=== PATIENT | male | born 1990 | race Caucasian/White ===

== ENCOUNTER → 2016-09-11 | Outpatient (CLI) | payer OTHER ==
[~2016-09-11] MED LIST: GADOBUTROL 10 MMOL/10 ML VIAL IV ONE
--- NOTE | 2016-09-11 17:03 | RAD ---
MR CERVICAL SPINE HISTORY:DDD, S/P EPIDURAL INJECTION, C/O LEG WEAKNESS, Neck pain into rt shoulder - Chronic. Legs shaky after epidural injection. Please call report to Dr. Maldonado [phone]: DDD, S/P EPIDURAL INJECTION, C/O LEG WEAKNESS / Spl. Instructions: Neck pain into rt shoulder - Chronic. Legs shaky after epidural injection / History: Technique: Sagittal T2, sagittal STIR, sagittal T1, and axial gradient echo imaging was obtained of the cervical spine. Postcontrast T1 weighted images were obtained after intravenous administration of gadolinium based contrast. FINDINGS: Alignment and curvature are within normal limits. Vertebral body heights are maintained. Overall bone marrow signal is within normal limits. The cord demonstrates no abnormal signal or abnormal enhancement. At C2-3 there is no spinal stenosis. At C3-4 there is no spinal stenosis. At C4-5 there is no spinal stenosis. At C5-6 there is bilateral uncovertebral hypertrophy worse on the left causing moderate left foraminal stenosis. Correlate for left C6 radiculopathy symptoms. At C6-C7 there is no spinal stenosis. At C7-T1 there is no spinal stenosis. Impression: - No acute abnormality of the cervical spine. No evidence for epidural fluid collection. No cord signal abnormality or high-grade stenosis. There is however, moderate left foraminal stenosis at C5-C6 from uncovertebral hypertrophy. Correlate for C6 radiculopathy symptoms. Electronically signed by: Hermelindo Mejia (Sep 11, 2016 17:02:03)
== END | disposition home or self-care (01) ==
LOC: MRI 13:38
PROVIDERS: ATTEND Physical Medicine & Rehabilitation
DX: M48.02 Spinal stenosis, cervical region (principal); R53.1 Weakness
CPT/HCPCS: 72156; A9585